=== PATIENT | female | born 1965 | race African-American/Black ===

== ENCOUNTER → 2023-03-24 | Outpatient (CLI) | payer MEDICARE, MEDICAID, SELFPAY ==
--- NOTE | 2023-03-24 09:23 | RAD_ITS ---
STUDY: X-RAY - LUMBAR SPINE REASON FOR EXAM: Female, 57 years old. SPINAL STENOSIS AT L4-L5 LEVEL TECHNIQUE: 5 view(s) of the lumbar spine were obtained. COMPARISON: None FINDINGS: Normal lumbar lordosis. Mild dextroscoliosis centered at L4. 2 mm of anterolisthesis of L3 on L4. 2 mm of anterolisthesis of L4 on L5. There is multilevel endplate spondylosis of the lumbar vertebrae. There is multi-level degenerative disc disease with multi-level disc space narrowing. Facet hypertrophy in the lower lumbar spine. The soft tissue structures are unremarkable. RAD/L/S Spine Min 4 Views IMPRESSION: Mild dextroscoliosis with degenerative disc disease as described above. MRI may be useful. Electronically Signed: Clemente Ricks MD at 20:43 EST ,
== END | disposition home or self-care (01) ==
LOC: MTRAD 09:20
PROVIDERS: PCP Family Medicine; Referring Provider Family Medicine; Visit Provider Family Medicine
DX: M48.061 Spinal stenosis, lumbar region without neurogenic claudication (principal)
CPT/HCPCS: 72110

== ENCOUNTER → 2023-06-23 | Outpatient (CLI) | payer MEDICARE, MEDICAID, SELFPAY ==
--- NOTE | 2023-06-23 15:40 | MRI_ITS ---
STUDY: MRI LUMBAR SPINE WITHOUT CONTRAST REASON FOR EXAM: Female, 57 years old. herniated disc lumbar spine TECHNIQUE: Standardized fat and water weighted pulse sequences were obtained in the sagittal and axial planes. COMPARISON: Lumbar spine series March 24, 2023 FINDINGS: T12-L1: Normal endplates. Normal disc height, hydration and morphology. Normal bilateral facet joints. Normal central canal and bilateral lateral recesses. Normal bilateral intervertebral neural foramina. Normal lumbar lordosis. There is no substantial scoliosis. Normal conus medullaris that terminates at T12-L1 L1-2: Normal endplates. Normal disc height, hydration and minimal annular bulge. Normal bilateral facet joints. Normal central canal and bilateral lateral recesses. Normal bilateral intervertebral neural foramina. L2-3: Normal endplates. Normal disc height, desiccation mild annular bulge with small bilateral foraminal disc protrusions. Facet arthropathy and thickening of ligamenta flava. Normal central canal and bilateral lateral recesses. Mild to moderate bilateral neural foraminal encroachment. L3-4: Normal endplates. Narrowed disc space with desiccation of disc and mild bulging disc osteophyte complex with large left foraminal disc protrusion. Facet arthropathy and thickening of ligamenta flava. Mild to moderate narrowing of the central canal exaggerated by posterior epidural fat.. Mild to moderate bilateral recess stenosis and severe bilateral neural foraminal stenosis more pronounced on the left. L4-5: Narrowed disc space with degenerative endplate changes. Patient the disc and mild bulging disc osteophyte complex with prominent left foraminal disc protrusion. Facet arthropathy and thickening of ligamenta flava. Mild narrowing of the central canal and bilateral lateral recesses. Moderate right neural foraminal stenosis and more severe stenosis on the left. L5-S1: Normal endplates. Normal disc height, desiccation and minor annular bulge with left foraminal disc protrusion.. Mild facet arthropathy.. Normal central canal and bilateral lateral recesses. Mild to moderate left neural foraminal stenosis and more severe narrowing on the right. Normal visualized sacral ala. Normal visualized paraspinous soft tissue structures. No significant change since prior exam given inherent differences in imaging modalities MRI/Spine Lumbar (Routine) IMPRESSION: No evidence for acute fracture or other significant bony pathology. Spondylosis and multilevel spinal stenosis secondary to disc disease and bony hypertrophy most severe at L3-4 greater on the left and L4-5 also worse on the left Findings as above Electronically Signed: Mike Palumbo MD at 18:53 EST ,
== END | disposition home or self-care (01) ==
PROVIDERS: PCP Family Medicine; Referring Provider Orthopaedic Surgery; Visit Provider Orthopaedic Surgery
DX: M51.26 Other intervertebral disc displacement, lumbar region (principal)
CPT/HCPCS: 72148

== ENCOUNTER → 2024-04-02 | Outpatient (CLI) | payer MEDICARE, MEDICAID, SELFPAY ==
--- NOTE | 2024-04-02 14:15 | RAD_ITS ---
EXAM: XR ABDOMEN, 2 VIEWS AND XR CHEST, 1 VIEW CLINICAL INDICATION: Painfull bloated TECHNIQUE: Frontal view of the chest, frontal view of the abdomen/pelvis and upright or decubitus view of the abdomen. COMPARISON: Lumbar spine MRI, 06/23/2023. FINDINGS: CHEST: LUNGS AND PLEURAL SPACES: No significant abnormality. No consolidation or edema. No pneumothorax. No effusion. HEART: No significant abnormality. Cardiac silhouette not enlarged. MEDIASTINUM: Central airways and mediastinal contour are unremarkable. ABDOMEN: INTRAPERITONEAL SPACE: No free air. GASTROINTESTINAL TRACT: Nonobstructed although nonspecific bowel gas pattern. Postoperative changes of the stomach and/or bowel in the left upper quadrant. ORGANS: Status post cholecystectomy. No organomegaly. No abnormal calcifications. TUBES, LINES AND DEVICES: None. BONES/JOINTS: Status post L3-L5 posterior fusion and likely at least L3-4 laminectomy change as well as L3-L4 and L4-5 discectomy. SOFT TISSUES: No significant findings. RAD/Acute Abdomen Inc Chest IMPRESSION: 1. Status post L3-L5 posterior fusion and likely at least L3-4 laminectomy change as well as L3-L4 and L4-5 discectomy. 2. Status post cholecystectomy. 3. Nonobstructed although nonspecific bowel gas pattern. Postoperative changes of the stomach and/or bowel in the left upper quadrant. Electronically Signed: Refugio Wilson DO at 20:42 EST ,
== END | disposition home or self-care (01) ==
LOC: MTRAD 14:15
PROVIDERS: PCP Family Medicine; Referring Provider Family Medicine; Visit Provider Family Medicine
DX: R14.0 Abdominal distension (gaseous) (principal)
CPT/HCPCS: 74022

== ENCOUNTER → 2024-07-02 | Outpatient (CLI) | payer MEDICARE, MEDICAID, SELFPAY ==
--- NOTE | 2024-07-02 09:18 | RAD_ITS ---
EXAM: XR Abdomen, 2 Views CLINICAL INDICATION: DYSPHAGIA TECHNIQUE: Frontal view of the abdomen/pelvis with upright view of the abdomen. COMPARISON: No relevant prior studies available. FINDINGS: INTRAPERITONEAL SPACE: No free air. GASTROINTESTINAL TRACT: Fecal retention in the colon consistent with constipation. No dilation. BONES/JOINTS: Posterior fusion of the lower lumbar spine. No acute fracture. RAD/Abd Inc Decub and/or Erect IMPRESSION: Fecal retention in the colon consistent with constipation. Reading Location: [facility]
== END | disposition home or self-care (01) ==
LOC: MTRAD 09:17
PROVIDERS: PCP Family Medicine; Referring Provider Family Medicine; Visit Provider Family Medicine
DX: R13.10 Dysphagia, unspecified (principal)
CPT/HCPCS: 74019